=== PATIENT | male | born 1945 | race Caucasian/White ===

== ENCOUNTER 2022-06-23 12:04 | Outpatient (REF) | payer BC, SELFPAY | END 2022-06-23 12:05 | disposition home or self-care (01) | LOC: HO.LNP 12:04 | PROVIDERS: Visit Provider Otolaryngology | DX: H60.501 Unspecified acute noninfective otitis externa, right ear (principal) | CPT/HCPCS: 87071; 87077; 87102; 87107; 87186; 87205 ==

== ENCOUNTER 2022-07-03 09:19 | Outpatient (REF) | payer MEDICARE, SELFPAY ==
[2022-07-03 10:48] LABS: Blood Urea Nitrogen 18 mg/dL (9-16); Estimated Glomerular Filt Rate > 60
== END 2022-07-03 09:20 | disposition home or self-care (01) ==
LOC: HO.10HDL 09:19
PROVIDERS: Visit Provider Otolaryngology
DX: Z01.812 Encounter for preprocedural laboratory examination (principal); H71.90 Unspecified cholesteatoma, unspecified ear
CPT/HCPCS: 36415; 82565; 84520

== ENCOUNTER 2022-07-28 11:39 | Outpatient (REF) | payer OTHER, SELFPAY | END 2022-07-28 11:40 | disposition home or self-care (01) | LOC: HO.LAB 11:39 | PROVIDERS: PCP Internal Medicine; Visit Provider Internal Medicine | DX: R78.81 Bacteremia (principal); B96.20 Unspecified Escherichia coli [E. coli] as the cause of diseases classified elsewhere | CPT/HCPCS: 87040 ==